=== PATIENT | female | born 1955 | race Caucasian/White ===

== ENCOUNTER 2018-05-29 18:03 | Emergency (ER) | payer OTHER ==
[~2018-05-29] VITALS: Ht 154.9 cm; Wt 68.3 kg
[~2018-05-29 18:03] MED LIST: HYDROCHLOROTHIA25 MG PO; KEPPRA500 MG PO; LIPI20 PO; OMEPRAZOLE DR20 M1 PO
[2018-05-29 18:12] VITALS: Ht 154.9 cm; Wt 68.3 kg
[2018-05-29 20:15] VITALS: BP 158/79
== END 2018-05-29 20:16 | disposition home or self-care (01) ==
LOC: ED 18:03
DX: M54.31 Sciatica, right side (principal); J45.909 Unspecified asthma, uncomplicated; I10 Essential (primary) hypertension; I25.10 Atherosclerotic heart disease of native coronary artery without angina pectoris; E78.00 Pure hypercholesterolemia, unspecified

== ENCOUNTER 2018-09-23 12:43 | Emergency (ER) | payer OTHER ==
[~2018-09-23] VITALS: Ht 154.9 cm; Wt 68.5 kg
[2018-09-23 12:55] VITALS: BP 149/70; Ht 154.9 cm; Wt 68.5 kg
== END 2018-09-23 14:15 | disposition left against medical advice (07) ==
LOC: ED 12:43
DX: Z53.21 Procedure and treatment not carried out due to patient leaving prior to being seen by health care provider (principal)

== ENCOUNTER 2019-04-07 16:28 | Emergency (ER) | payer MEDICARE, OTHER ==
[~2019-04-07] VITALS: Ht 154.9 cm; Wt 68.0 kg
[2019-04-07 16:32] VITALS: Ht 154.9 cm; Wt 68.0 kg
[2019-04-07 18:36] VITALS: BP 140/80
== END 2019-04-07 18:36 | disposition home or self-care (01) ==
LOC: ED 16:28
DX: M65.4 Radial styloid tenosynovitis [de Quervain] (principal); J45.909 Unspecified asthma, uncomplicated; J44.9 Chronic obstructive pulmonary disease, unspecified; E78.00 Pure hypercholesterolemia, unspecified; I10 Essential (primary) hypertension; Z88.5 Allergy status to narcotic agent; Z90.710 Acquired absence of both cervix and uterus
CPT/HCPCS: J1885; Q0092